=== PATIENT | female | born 1990 | race African-American/Black ===

== ENCOUNTER 2016-07-11 08:00 | Inpatient (IN) | payer OTHER ==
--- NOTE | 2016-06-29 10:32 | IPN ---
DATE: 06/28/2016 This lady is a 25-year-old, 4, para 1, whose history is monochorionic-diamniotic twins, short cervix at 1.7 cm. AFIs are normal. Slight elevation in the RI index. She has mono-di twins with a short cervix and a short gestation with previous section. This morning, her blood pressure is 107/53, respirations 18, pulse 101 and temperature is 97.6. She has received her steroid dose and she will be complete in 12 hours. The babies are monitored by Doppler and appear to be with normal limits of heart and kick chart assessment is normal. Her urine this morning is 1.020, pH 6 and negative with trace of blood. On the rest of examination, chest is clear bilaterally to bases. Heart sounds are normal. No evidence of deep vein thrombosis (DVT), pulmonary embolism (PE) or superficial phlebitis. Non irritable uterus. She is presently wearing her sequentials and is getting up appropriately to the bathroom as well as showering. There is no evidence to suggest any labor. Our plan of management is to monitor her today. She has a repeat of her biophysical profile on 07/01/2016. The plan is to allow her to go home on Sunday if all is stable and to monitor her closely and move up her repeat section from 06/28/2016 to 34 weeks of gestation when she is steroid complete.
--- NOTE | 2016-07-06 15:00 | HPE ---
DATE OF ADMISSION: 07/20/2016 This lady is booked for a repeat section on July 20, 2016. She has mono/di twins. Her last period was November 21, 2015. Her estimated date of confinement (EDC) is August 27, 2016. She is going to be 34 and 3 weeks of gestation at time of section. Her risk factors is that she has mono do twins. There was evidence of shortening of the cervix of 1.7 to 2 cm. She had an elevated RI index. She has a history of shortened gestational age, in that her last section was December 2014 because of cord issues. PAST HISTORY: 12/09/2014 at 40 weeks, elective section, live male 8 pounds 15 ounces. In 2011 she had an EAB. In 2012 she had an EAB. LABORATORY VALUES: Her lab values show that she is A positive. HIV negative. Hepatitis negative. RPR negative. Varicella nonimmune. Abnormal Pap smear showing ascus. Urine was negative. Gonorrhea and chlamydia are negative. Early glucose was 171. She then did her 3-hour GTT fasting 84, 1-hour 134, 2-hour 123 and 3 hours 112. Presently, Group B Streptococcus (GBS) is pending. She had a quad screen which was negative. She had CF testing which showed that she does not carry any of the 60 CF mutations tested. This lady had been in the hospital recently for shortened cervix and difficulty in monitoring the fetuses doing an NST and therefore she had a biophysical profile. She was discharged after having been steroid complete. She has been monitored in the office twice a week and she is booked for elective repeat section. After discussing the risks and benefits of section including hemorrhage, infection, perforation, , reoperation, remote possibility of blood transfusion, remote possibility hysterectomy, remote possibility of laceration or fetuses ending up in the intensive-care unit (NICU), she expressed understanding, consent form signed by her and witnessed by her . On examination her blood pressure is 105/52, respirations are 18, pulse is 76, temperature 97, temperature is 98.6. She has category 1 strip on both fetuses. She is normocephalic, atraumatic. Neck full range of motion. Pupils equal and reactive to light. Distal pulses are symmetric. No evidence of deep vein thrombosis (DVT), pulmonary embolism (PE) or superficial phlebitis. Thyroid is midline, 30 grams, nontender. No compression issues. Lungs are clear bilaterally to bases. No wheezes or rhonchi. No CVA tenderness. Symphysis fundus height is enlarged and four quadrant bowel sounds are noted. She has no rashes or lesions or pruritus. No arthralgia or myalgia. She is not complaining of a cough, wheeze, shortness of breath or dyspnea on exertion. She has no chest pain. She is neuro complete. No incontinency or frequency. No nausea, vomiting, diarrhea or constipation. Diabetic issues have resolved. 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 Her past surgical history is a primary section. She does not smoke or drink or abuse drugs. She is . There is no domestic violence. In summary, we have mono/di twins, closely monitored for repeat section secondary to short gestation and elevated RI index with a shortened cervix.
[~2016-07-11] VITALS: Ht 160 cm; Wt 91.0 kg
[2016-07-15] MEDS ORDERED: PRENTAB9 PO (13:17)
[2016-07-20] MEDS ORDERED: LR 500 ML IV ONE (05:45)
[2016-07-20] MEDS ORDERED: BUPIVACAINE HCL 0.25% 10 ML VIAL XX SCH (05:45)
[2016-07-20] MEDS ORDERED: BICITRA 30ML SOLN UDC PO ONE (05:45)
[2016-07-20] MEDS ORDERED: ACETAMINOPHEN 650 MG SUPP PR ONE (06:00)
[2016-07-20 06:19] LABS: MEAN CORPUSCULAR HEMOGLOBIN 31.6 pg (27.0-33.0); MEAN CORPUSCULAR HGB CONC 35.3 g/dl (32.0-36.5); MEAN CORPUSCULAR VOLUME 89.5 fl (80.0-96.0); RED CELL DISTRIBUTION WIDTH 14.2 % (11.5-14.5); WHITE BLOOD COUNT 4.6 K/mm3 (4.0-10.0)
[2016-07-20] MEDS ORDERED: LR 1,000 ML IV SCH ×2 (06:45→15:21)
[2016-07-20] MEDS ORDERED: MORPHINE PRES-FREE INJ 10 MG/10 ML VIAL (J2274) As Ordered ONE (12:01)
[2016-07-20] MEDS ORDERED: PHENYLephrine HCL 500 MCG/5 ML (100MCG/ML) SYRINGE (J2370) As Ordered ONE (12:35)
[2016-07-20] MEDS ORDERED: ePHEDrine SULFATE 25 MG/5 ML(5MG/ML) SYRINGE As Ordered ONE ×2 (12:35→12:47)
[2016-07-20 13:39] LABS: CORD GAS ABE A -7.2; CORD GAS HCO3 A 23.6 MEQ/L; CORD GAS O2 SAT A < 15.0 %; CORD GAS PCO2 A 73.7 mmHg; CORD GAS PH A 7.123 UNITS; CORD GAS PO2 A < 10.0 mmHg; CORD GAS TCO2 A 25.8 MEQ/L
[2016-07-20 13:40] LABS: CORD GAS ABE V -7.1; CORD GAS HCO3 V 21.6 MEQ/L; CORD GAS O2 SAT V 50.9 %; CORD GAS PCO2 V 56.9 mmHg; CORD GAS PH V 7.198 UNITS; CORD GAS PO2 V 26.5 mmHg; CORD GAS SBC V 17.8 MEQ/L; CORD GAS TCO2 V 23.4 MEQ/L
[2016-07-20 13:42] LABS: CORD GAS ABE V -4.4; CORD GAS HCO3 V 22.8 MEQ/L; CORD GAS PH V 7.276 UNITS; CORD GAS PO2 V 17.8 mmHg; CORD GAS SBC V 19.4 MEQ/L; CORD GAS TCO2 V 24.3 MEQ/L
[2016-07-20 13:45] LABS: CORD GAS ABE A -5.8; CORD GAS HCO3 A 22.5 MEQ/L; CORD GAS O2 SAT A 39.4 %; CORD GAS PCO2 A 55.7 mmHg; CORD GAS PH A 7.225 UNITS; CORD GAS PO2 A 20.1 mmHg; CORD GAS SBC A 18.5 MEQ/L; CORD GAS TCO2 A 24.3 MEQ/L
[2016-07-20] MEDS ORDERED: ONDANSETRON 4MG/2ML VIAL (J2405) IV PRN (14:30)
[2016-07-20] MEDS ORDERED: fentaNYL 100 MCG/2 ML INJECTION (J3010) IV PRN (14:30)
[2016-07-20] MEDS ORDERED: NALBUPHINE HCL 10 MG/ML AMP (J2300) IV PRN (14:30)
[2016-07-20] MEDS ORDERED: KETOROLAC 30 MG/ML VIAL (J1885) IV PRN (14:30)
[2016-07-20] MEDS ORDERED: OXYTOCIN DRIP 30 UNITS in APPROPRIATE DILUENT 1 EA IV SCH (15:21)
[2016-07-20] MEDS ORDERED: RHOGAM 300 MCG (1500 IU) INJ (J2790) IM SCH (15:30)
[2016-07-20] MEDS ORDERED: OXYTOCIN INJ 10 UNITS/ML VIAL (J2590) IV ONE (15:30)
[2016-07-20] MEDS ORDERED: DOCUSATE SODIUM 100 MG CAP PO PRN (15:30)
[2016-07-20] MEDS ORDERED: ANUSOL HC CREAM 30GM TOP PRN (15:30)
[2016-07-20] MEDS ORDERED: MEASLES,MUMPS,RUBELLA VACCINE INJ (MMR-II) (90707) SC SCH (15:30)
[2016-07-20] MEDS ORDERED: MOM 30ML SUSPENSION UDC PO PRN (15:30)
[2016-07-20 16:40] VITALS: BP 103/55
[2016-07-20 17:10] VITALS: BP 98/57
[2016-07-20] MEDS: PERCOCET 5MG/325MG TAB PO PRN ×2 (17:28→21:33)
[2016-07-20 17:40] VITALS: BP 98/53
[2016-07-20 17:40] LABS: HIVSOURCE0 NEGATIVE (NEGATIVE)
[2016-07-20 17:44] LABS: HIV SOURCE PT 1 NEGATIVE (NEGATIVE)
[2016-07-20 17:45] LABS: CONTROL LINE INT CTR LINE PRESENT
[2016-07-20 18:40] VITALS: BP 107/54
[2016-07-20 20:12] VITALS: BP 107/59
[2016-07-20 22:11] VITALS: BP 90/61
--- NOTE | 2016-07-20 23:59 | RO ---
DATE OF PROCEDURE: 07/20/2016 PREOPERATIVE DIAGNOSIS: Monochorionic-diamniotic twins, polyhydramnios twin A and B, transverse lie back up twin A, transverse lie back up twin B, shortened cervix at 1.6 cm, previous section, 34 weeks and 3 days gestation. POSTOPERATIVE DIAGNOSIS: PROCEDURE: SURGEON: Dr. Fletcher Turner SENIOR ACCOUNT REPRESENTATIVE: Delio ANESTHESIA: ESTIMATED BLOOD LOSS: 500 mL. DESCRIPTION OF PROCEDURE: Under adequate anesthesia, prepped and draped in the supine position, Wilson catheter in the bladder draining clear urine, sequentials on board, antibiotics on board preop, acetaminophen suppository 1300 mg per rectum. Appropriate time-out was performed. Dr. Elise in attendance for resuscitation. A low transverse incision was made into the skin through the previous low transverse incision, passing through abdominal layers securing hemostasis. Opening the peritoneal cavity, we noticed that there were adhesive bands to the right side of the uterus, to the right sidewall of the pelvis, pulling it all over onto that side. The bladder was reflected well down anteriorly, low transverse incision was made into the uterus. And after extending the incisional site, we got a moderate amount of bleeding from the right side, possibly the uterine because of the adhesions on that side. An AROM draining clear liquor. We delivered a live twin A, 2580 grams, 5 pounds 11 ounces and the baby was handed off to the meat stock clerk. The arterial pH was 7.22, base excess -5.8, venous pH was 7.27, base excess -4.4. We then had bulging membranes with the second twin and an AROM was done draining clear liquor. The total volume of amniotic fluid from both sacs was over 700 mL of fluid. The baby had it back anteriorly. We then converted into a breech and extracted the breech, a live weighing 2476 grams, weight 5 pounds 7 ounces. scores of 6 and 8 at one and five minutes respectively. Baby A apparently the score was 2, 7 and 8. The placenta was manually removed. It was sent off to pathology under separate cover. The arterial pH for twin B was 7.123, base excess -7.2, venous pH was 7.198, base excess -7.1. The uterus contracted well down on Pitocin. The uterine cavity was swept and found to have no evidence of placenta or membranes. The lower segment was oversewn in the usual fashion in two layers, paying attention to the right side where the right side which had some moderate bleeding was oversewn with two [id number] separately. With good hemostasis, reperitonealization was performed and with instrument and pad count correct, the ovaries and tubes appeared to be normal, the abdomen was then closed. Running stitch for the peritoneum, same for the fascia, interrupted for subcu, Dexon to the skin, Marcaine 0.25% 10 mL, spray and Telfa were applied and the patient was sent to recovery in good condition. Carbon Copy: Rosa Salguero OB
[2016-07-21] MEDS: PERCOCET 5MG/325MG TAB PO PRN ×3 (01:55→20:49)
[2016-07-21 02:09] VITALS: BP 109/53
[2016-07-21] MEDS: IBUPROFEN 800 MG TAB PO SCH ×3 (05:49→22:54)
[2016-07-21 05:59] VITALS: BP 106/57
[2016-07-21 07:36] LABS: MEAN CORPUSCULAR HEMOGLOBIN 30.8 pg (27.0-33.0); MEAN CORPUSCULAR HGB CONC 33.8 g/dl (32.0-36.5); MEAN CORPUSCULAR VOLUME 91.2 fl (80.0-96.0); RED CELL DISTRIBUTION WIDTH 14.2 % (11.5-14.5); WHITE BLOOD COUNT 5.6 K/mm3 (4.0-10.0)
[2016-07-21] MEDS: PRENATAL VITAMIN TAB PO SCH (08:10)
[2016-07-21 10:00] VITALS: BP 105/56
[2016-07-21 14:00] VITALS: BP 104/54
[2016-07-21 18:26] VITALS: BP 156/77
[2016-07-21 22:20] VITALS: BP 122/63
[2016-07-22 05:37] VITALS: BP 131/60
[2016-07-22] MEDS: IBUPROFEN 800 MG TAB PO SCH (06:23)
[2016-07-22] MEDS: PRENATAL VITAMIN TAB PO SCH (08:16)
--- NOTE | 2016-07-22 09:56 | IPNPDOC ---
Text Note Date of Service The patient was seen on 07/22/16 at 09:52. NOTE Post-operative Day 2 Renee is a 25yo [id number] s/p scheduled RLTCS at 34w4d indicated for mono-di twin gestation with unstable lie and polyhydramnios with history of prior , doing well on POD 2. Tolerating regular diet, pain well controlled, urinating spontaneously without difficulty, ambulating with ease. Breastpumping for babies in NICU. Lochia normal. Denies f/c/n/v/SOB/CP. Vitals wnl, afebrile General: WDWN, resting comfortably Cardiac: S1S2 present, no murmur Lungs: CTAB Abdomen: soft, appropriately tender to palpation with no rebound/guarding, uterine fundus at u-2cm, incision is clean/dry/intact with no erythema or drainage Extremities: no pain with palpation of BLE Pre-op H/H 11.3/31.8, post-op 9.2/27.4 Assessment: Renee is a 25yo [id number] s/p scheduled RLTCS at 34w4d indicated for mono-di twin gestation with unstable lie and polyhydramnios with history of prior doing well on POD 2. Vitals wnl, afebrile, exam benign. Hemodynamically stable with no e/o infection. Meeting all milestones. Plan: -discharge to home today -percocet and motrin for pain as well as dibucaine topical -regular diet -encourage and ambulation -post-op follow up in 1-2wk with Dr. Johnny Silverman MD CodyMaryam Richter, I+O Maryam ANG, I+O Vital Signs Date Time Temp Pulse Resp B/P Pulse Ox O2 Delivery O2 Flow Rate FiO2 07/22/16 05:37 98.7 81 18 131/60 07/21/16 22:20 100 07/21/16 14:00 Room Air I&O- Last 24 Hours up to 6 AM 07/22/16 06:00 Intake Total 720 ml Balance 720 ml GLORY SILVERMAN MD Jul 22, 2016 09:55
--- NOTE | 2016-07-22 10:02 | DS.PDOC ---
Discharge Summary General Date of Admission Jul 20, 2016 at 05:26 Date of Discharge Jul 22, 2016 Attending Physician: GLORY SILVERMAN MD Discharge Summary PROCEDURES PERFORMED DURING STAY: Repeat low transverse section COMPLICATIONS/CHIEF COMPLAINT: History Prior Section with Hendry/ Di Twins, polyhydramnios and unstable lie ADMISSION DIAGNOSES: 1. Hendry-di twins at 34w4d with history of prior 2. Polyhydramnios 3. Unstable lie 4. Shortened cervix DISCHARGE DIAGNOSES: 1. Hendry-di twins at 34w4d with history of prior 2. Polyhydramnios 3. Unstable lie 4. Shortened cervix HISTORY OF PRESENT ILLNESS/HOSPITAL COURSE: Renee is a 25yo [id number] s/p uncomplicated scheduled RLTCS at 34w4d indicated for mono-di twin gestation with unstable lie and polyhydramnios and shortened cervix with history of prior . Benign post-operative/ course. Delivery productive of two viable male infants currently in NICU due to status. Pre-op H/H 11.3/31.8, post-op 9.2/27.4. DISCHARGE MEDICATIONS: percocet, motrin, colace, ferrous sulfate, dibucaine topical ointment, tylenol ALLERGIES: Please see below. PHYSICAL EXAMINATION ON DISCHARGE: Vitals wnl, afebrile General: WDWN, resting comfortably Cardiac: S1S2 present, no murmur Lungs: CTAB Abdomen: soft, appropriately tender to palpation with no rebound/guarding, uterine fundus at u-2cm, incision is clean/dry/intact with no erythema or drainage Extremities: no pain with palpation of BLE LABORATORY DATA: Please see below. IMAGING: none VTE Prophylaxis ordered?: none required DISCHARGE CONDITION: stable DISPOSITION: discharge to home ACTIVITY: as tolerated, vaginal rest for 6 weeks DIET: regular DISCHARGE PLAN AND INSTRUCTIONS: -discharge to home today -percocet and motrin for pain as well as dibucaine topical -regular diet -encourage and ambulation -post-op follow up in 1-2wk with Dr. Turner TIME SPENT ON DISCHARGE: Greater than 30 minutes. Vital Signs/I&Os Vital Signs Date Time Temp Pulse Resp B/P Pulse Ox O2 Delivery O2 Flow Rate FiO2 07/22/16 05:37 98.7 81 18 131/60 07/21/16 22:20 100 07/21/16 14:00 Room Air I&O- Last 24 Hours up to 6 AM 07/22/16 06:00 Intake Total 720 ml Balance 720 ml Medications Scheduled Multivitamins/ ( 27-0.8 mg) 1 Tab Tab 1 TAB PO DAILY Allergies Coded Allergies: No Known Allergies (Unverified , 06/27/16) GLORY SILVERMAN MD Jul 22, 2016 10:02
[2016-07-22] MEDS ORDERED: COLA100C PO (11:00)
[2016-07-22] MEDS ORDERED: IBUP-1114 PO (11:00)
[2016-07-22] MEDS ORDERED: OXYC1TAB23 PO (11:00)
== END 2016-07-22 11:38 | disposition home or self-care (01) | DRG 765 ==
LOC: M LDI 07-20 05:26 → M OBS 07-20 16:56
PROVIDERS: ADMIT Obstetrics & Gynecology; ATTEND Obstetrics & Gynecology
PROC: 10D00Z1 Extraction of Products of Conception, Low, Open Approach (ICD-10-PCS; principal; 2016-07-20 09:30)
DX: O26.873 Cervical shortening, third trimester (principal); O30.033 Twin pregnancy, monochorionic/diamniotic, third trimester; O40.3XX1 Polyhydramnios, third trimester, fetus 1; O34.211 Maternal care for low transverse scar from previous cesarean delivery; Z3A.34 34 weeks gestation of pregnancy; O32.2XX2 Maternal care for transverse and oblique lie, fetus 2; Z37.2 Twins, both liveborn

== ENCOUNTER 2016-07-15 12:42 | Outpatient (CLI) | payer OTHER ==
[~2016-07-15] VITALS: Ht 160 cm; Wt 92.0 kg
[2016-07-15 13:11] VITALS: BP 119/63
[2016-07-15] MEDS ORDERED: PRENTAB9 PO (13:17)
== END 2016-07-15 14:05 | disposition home or self-care (01) ==
LOC: M LDO 12:42
PROVIDERS: ATTEND Obstetrics & Gynecology
DX: O62.0 Primary inadequate contractions (principal); Z3A.00 Weeks of gestation of pregnancy not specified; O30.033 Twin pregnancy, monochorionic/diamniotic, third trimester

== ENCOUNTER 2016-11-08 04:25 | Emergency (ER) | payer OTHER ==
[~2016-11-08] VITALS: Ht 160 cm; Wt 83.9 kg
[~2016-11-08 04:25] MED LIST: COLA100C3 PO; IBUP-1114 PO; OXYC1TAB23 PO; PRENTAB9 PO
[2016-11-08] MEDS ORDERED: PERC5TAB6 PO (06:25)
[2016-11-08] MEDS ORDERED: PERCOCET 5MG/325MG TAB PO ONE (06:30)
[2016-11-08 06:40] VITALS: BP 130/60
--- NOTE | 2016-11-08 07:32 | REP ---
Clinical: Left ankle pain. Technique: AP, lateral, bilateral oblique views of the right and left ankle. Findings: Right ankle demonstrates diffuse soft tissue swelling. To bony fragments adjacent to the fibular head at the lateral malleolus suggest a avulsion fracture fragments of indeterminate age and should be correlated with physical examination and history of trauma. Left ankle appears relatively normal and without evidence for fracture. Impression: 1. Swelling ans suspected avulsion fracture fragments of the right lateral malleolus/fibular head of indeterminate age. Correlation recommended. 2. Left ankle appears relatively normal. Signed by Miguel Vargas MD 11/08/2016 07:23 A
== END 2016-11-08 06:46 | disposition home or self-care (01) ==
LOC: EDBD 04:25 → M ED 06:15
DX: S93.402A Sprain of unspecified ligament of left ankle, initial encounter (principal); S82.61XA Displaced fracture of lateral malleolus of right fibula, initial encounter for closed fracture; W01.0XXA Fall on same level from slipping, tripping and stumbling without subsequent striking against object, initial encounter; Y92.018 Other place in single-family (private) house as the place of occurrence of the external cause; Y93.89 Activity, other specified; Y99.8 Other external cause status; F17.210 Nicotine dependence, cigarettes, uncomplicated

== ENCOUNTER 2017-04-15 04:52 | Emergency (ER) | payer OTHER ==
[~2017-04-15] VITALS: Ht 160 cm; Wt 84.0 kg
[~2017-04-15 04:52] MED LIST changes: -COLA100C3 PO; +COLA100C5 PO; +PERC5TAB12 PO
[2017-04-15 04:57] VITALS: BP 120/59
[2017-04-15] MEDS ORDERED: LIDO1SOL7 MT (06:24)
== END 2017-04-15 06:53 | disposition home or self-care (01) ==
LOC: M ED 04:52
DX: J06.9 Acute upper respiratory infection, unspecified (principal); Z72.0 Tobacco use

== ENCOUNTER → 2017-08-29 | Outpatient (REF) | payer OTHER | LOC: M SFHCLUC 16:22 | DX: J02.9 Acute pharyngitis, unspecified (principal) ==